=== PATIENT | female | born 1960 | race Caucasian/White ===

== ENCOUNTER 2019-08-18 12:55 | Inpatient (IN) ==
[2019-08-18] MEDS ORDERED: methylPREDNISolone 125 MG/2 ML VIAL IVP ONE (13:03)
[2019-08-18] MEDS ORDERED: Ipratropium/Albuterol Neb 3 ML IH ONE (13:03)
[2019-08-18 13:32] LABS: Basophils % 0.2 %; Hematocrit 44.4 % (35.3-44.9); Hemoglobin 14.7 g/dL (11.5-15.4); Immature Granulocytes % 0.4 % (0-4); Lymphocytes # 0.2 K/mcL (0.6-4.6); Lymphocytes % 2.2 %; Mean Corpuscular HGB Conc 33.1 g/dL (31.6-35.5); Mean Corpuscular Hemoglobin 30.7 pg (28.0-33.3); Mean Corpuscular Volume 92.7 fL (83.0-100.0); Mean Platelet Volume 9.1 fL (9.4-12.4); Monocytes # 0.4 K/mcL (0.0-1.3); Monocytes % 4.7 %; Neutrophils # 8.3 K/mcL (1.6-8.9); Platelet Count 295 K/mcL (140-400); Red Blood Count 4.79 M/mcL (3.82-4.97); Red Cell Distribution Width 13.8 % (11.5-14.5); Segmented Neutrophils % 92.5 %
[2019-08-18] MEDS ORDERED: Azithromycin 500 MG in 0.9 % Sodium Chloride 250 ML IVPB ONE (13:37)
[2019-08-18] MEDS ORDERED: cefTRIAXone 1,000 MG in Water for inj. (sterile) 10 ML IVP ONE (13:37)
[2019-08-18] MEDS ORDERED: 0.9 % Sodium Chloride 1,000 ML IVC ONE (13:37)
[2019-08-18 13:51] LABS: BUN/Creatinine Ratio 26 (6-26); Blood Urea Nitrogen 17 mg/dL (8-23); Calcium 9.8 mg/dL (8.6-10.3); Carbon Dioxide 25 mEq/L (23-29); Chloride 101 mEq/L (98-107); Glucose 131 mg/dL (70-105); Osmolality,Calculated 283 (280-300); Potassium 4.1 mEq/L (3.5-5.1); Sodium 135 mEq/L (136-145); eGFR For African Americans > 60 (> 60); eGFR For Non-African Americans > 60 (> 60)
[2019-08-18] MEDS ORDERED: Albuterol 2.5 MG/3 ML NEBULIZER IH ONE (13:54)
[2019-08-18 14:27] LABS: ABG Base Excess 3 mEq/L (-2 to 3); ABG HCO3 27 mEq/L (21-27); ABG Oxygen Saturation 94 % (95-98); ABG PCO2 41 mmHg (35-45); ABG PH 7.43 pH Units (7.32-7.45); ABG PO2 71 mmHg (85-104); ABG TCO2 28 mEq/L (20-26)
[2019-08-18] MEDS ORDERED: Acetaminophen 325 MG TABLET PO PRN (15:11)
[2019-08-18] MEDS ORDERED: Naloxone 0.4 MG/ML INJ IVP PRN (15:11)
[2019-08-18] MEDS ORDERED: Albuterol 2.5 MG/3 ML NEBULIZER IH PRN (15:11)
[2019-08-18] MEDS ORDERED: MOM Conc 10 ML UD.LIQ PO PRN (15:11)
[2019-08-18] MEDS ORDERED: Mag Hydrox/Al Hydrox/Simeth 30 ML UDC PO PRN (15:11)
[2019-08-18] MEDS ORDERED: Ondansetron ODT 4 MG TAB.RAPDIS SL PRN (15:11)
[2019-08-18] MEDS: Ipratropium/Albuterol Neb 3 ML IH SCH ×2 (15:53→21:41)
[2019-08-18] MEDS: MethylPREDNISolone 40 MG/ML VIAL IVP SCH ×2 (17:30→23:45)
[2019-08-18 17:34] LABS: Adenovirus Not Detected (Not Detect); Coronavirus 229E Not Detected (Not Detect); Coronavirus HKU1 Not Detected (Not Detect); Coronavirus NL63 Not Detected (Not Detect); Coronavirus OC43 Not Detected (Not Detect); Human Metapneumovirus Not Detected (Not Detect); Human Rhinovirus/Enterovirus Not Detected (Not Detect)
[2019-08-18 17:35] LABS: Bordetella Pertussis Not Detected (Not Detect); Chlamydophila pneumoniae Not Detected (Not Detect); Influenza A Subtype 2009 H1 DETECTED (Not Detect); Influenza B Not Detected (Not Detect); Mycoplasma pneumoniae Not Detected (Not Detect); Parainfluenza Virus 1 Not Detected (Not Detect); Parainfluenza Virus 2 Not Detected (Not Detect); Parainfluenza Virus 3 Not Detected (Not Detect); Parainfluenza Virus 4 Not Detected (Not Detect); Respiratory Syncytial Virus Not Detected (Not Detect)
[2019-08-18] MEDS ORDERED: *HR* LORazepam 2 MG/ML VIAL IVP ONE (19:29)
[2019-08-19] MEDS ORDERED: *HR* LORazepam 2 MG/ML VIAL IVP ONE (00:35)
[2019-08-19] MEDS ORDERED: MethylPREDNISolone 40 MG/ML VIAL IVP ONE (00:40)
[2019-08-19] MEDS ORDERED: Levalbuterol Neb 1.25 MG/3 ML ONE (01:30)
[2019-08-19] MEDS: Levalbuterol Neb 1.25 MG/3 ML IH SCH ×6 (01:32→23:10)
[2019-08-19 01:36] LABS: Hematocrit 47.8 % (35.3-44.9); Hemoglobin 15.6 g/dL (11.5-15.4); Mean Corpuscular HGB Conc 32.6 g/dL (31.6-35.5); Mean Platelet Volume 9.5 fL (9.4-12.4); Platelet Count 351 K/mcL (140-400); Red Blood Count 5.03 M/mcL (3.82-4.97); Red Cell Distribution Width 14.1 % (11.5-14.5); White Blood Count 13.9 K/mcL (4.3-11.1)
[2019-08-19] MEDS ORDERED: *HR* Metoprolol 5 MG/5 ML VIAL IVP ONE (01:39)
[2019-08-19 01:51] LABS: BUN/Creatinine Ratio 28 (6-26); Blood Urea Nitrogen 22 mg/dL (8-23); Calcium 9.2 mg/dL (8.6-10.3); Carbon Dioxide 26 mEq/L (23-29); Chloride 102 mEq/L (98-107); Glucose 132 mg/dL (70-105); Magnesium 2.3 mg/dL (1.6-2.6); Osmolality,Calculated 295 (280-300); Phosphorous 4.1 mg/dL (2.7-4.5); Potassium 4.5 mEq/L (3.5-5.1); Sodium 140 mEq/L (136-145); eGFR For African Americans > 60 (> 60); eGFR For Non-African Americans > 60 (> 60)
[2019-08-19] MEDS ORDERED: Levalbuterol Neb 1.25 MG/3 ML IH ONE (03:42)
[2019-08-19] MEDS ORDERED: Pantoprazole 40 MG VIAL IVP SCH (06:00)
[2019-08-19] MEDS: MethylPREDNISolone 40 MG/ML VIAL IVP SCH (06:04)
[2019-08-19 07:50] LABS: Estimated Average Glucose 123 mg/dl
[2019-08-19] MEDS ORDERED: Ipratropium/Albuterol Neb 3 ML IH ONE (08:26)
[2019-08-19] MEDS ORDERED: Ipratropium/Albuterol Neb 3 ML ONE ×2 (08:29→09:46)
[2019-08-19 08:43] LABS: ABG Base Excess 2 mEq/L (-2 to 3); ABG HCO3 32 mEq/L (21-27); ABG Oxygen Saturation 95 % (95-98); ABG PCO2 70 mmHg (35-45); ABG PH 7.27 pH Units (7.32-7.45); ABG PO2 87 mmHg (85-104); ABG TCO2 34 mEq/L (20-26); Blood Gas Pressure Support 14 cm H2O
[2019-08-19] MEDS ORDERED: Loratadine 10 MG TABLET PO SCH (09:00)
[2019-08-19] MEDS ORDERED: Levalbuterol Neb 1.25 MG/3 ML IH STA (09:01)
[2019-08-19] MEDS: Ipratropium/Albuterol Neb 3 ML IH SCH (09:37)
[2019-08-19] MEDS ORDERED: Naloxone 0.4 MG/ML INJ IVP PRN (09:40)
[2019-08-19] MEDS ORDERED: Acetaminophen 325 MG TABLET PO PRN (09:40)
[2019-08-19] MEDS ORDERED: MOM Conc 10 ML UD.LIQ PO PRN (09:40)
[2019-08-19] MEDS ORDERED: Ondansetron ODT 4 MG TAB.RAPDIS SL PRN (09:40)
[2019-08-19] MEDS ORDERED: Albuterol 2.5 MG/3 ML NEBULIZER IH PRN (09:40)
[2019-08-19] MEDS ORDERED: Mag Hydrox/Al Hydrox/Simeth 30 ML UDC PO PRN (09:40)
[2019-08-19] MEDS ORDERED: Dexmedetomidine HCl 400 MCG/100 ML MLS IVC ONE (10:24)
[2019-08-19] MEDS: Dexmedetomidine HCl 400 MCG/100 ML MLS IVC SCH ×2 (10:49→19:34)
[2019-08-19] MEDS ORDERED: MethylPREDNISolone 40 MG/ML VIAL IVP SCH (12:00)
[2019-08-19] MEDS: Azithromycin 500 MG in 0.9 % Sodium Chloride 250 ML IVPB SCH (12:19)
[2019-08-19 13:41] LABS: ABG Base Excess -1 mEq/L (-2 to 3); ABG HCO3 28 mEq/L (21-27); ABG Oxygen Saturation 99 % (95-98); ABG PCO2 61 mmHg (35-45); ABG PH 7.27 pH Units (7.32-7.45); ABG PO2 140 mmHg (85-104); ABG TCO2 30 mEq/L (20-26); Blood Gas Pressure Support 16 cm H2O
[2019-08-19] MEDS ORDERED: cefTRIAXone 2,000 MG in Water for inj. (sterile) 20 ML IVP SCH (14:00)
[2019-08-19] MEDS ORDERED: Azithromycin 500 MG in 0.9 % Sodium Chloride 250 ML IVPB SCH (14:00)
[2019-08-19] MEDS: cefTRIAXone 2,000 MG in Water for inj. (sterile) 20 ML IVP SCH (14:36)
[2019-08-19] MEDS ORDERED: Aminoglycoside Consult 1 EACH MC ONE (15:03)
[2019-08-19] MEDS: Pantoprazole 40 MG VIAL IVP SCH (17:54)
[2019-08-20] MEDS: Levalbuterol Neb 1.25 MG/3 ML IH SCH ×5 (03:32→20:18)
[2019-08-20 04:02] LABS: Basophils % 0.1 %; Hematocrit 41.7 % (35.3-44.9); Hemoglobin 12.9 g/dL (11.5-15.4); Immature Granulocytes % 0.4 % (0-4); Lymphocytes # 0.9 K/mcL (0.6-4.6); Lymphocytes % 6.5 %; Mean Corpuscular HGB Conc 30.9 g/dL (31.6-35.5); Mean Corpuscular Hemoglobin 30.9 pg (28.0-33.3); Mean Corpuscular Volume 99.8 fL (83.0-100.0); Mean Platelet Volume 9.6 fL (9.4-12.4); Monocytes # 1.3 K/mcL (0.0-1.3); Monocytes % 9.8 %; Neutrophils # 11.4 K/mcL (1.6-8.9); Platelet Count 258 K/mcL (140-400); Red Blood Count 4.18 M/mcL (3.82-4.97); Red Cell Distribution Width 14.2 % (11.5-14.5); Segmented Neutrophils % 83.2 %; White Blood Count 13.7 K/mcL (4.3-11.1)
[2019-08-20 04:21] LABS: Calcium 8.5 mg/dL (8.6-10.3); Potassium 4.4 mEq/L (3.5-5.1)
[2019-08-20 04:47] LABS: ABG Base Excess 1 mEq/L (-2 to 3); ABG HCO3 28 mEq/L (21-27); ABG Oxygen Saturation 92 % (95-98); ABG PCO2 53 mmHg (35-45); ABG PH 7.32 pH Units (7.32-7.45); ABG PO2 70 mmHg (85-104); ABG TCO2 29 mEq/L (20-26)
[2019-08-20] MEDS: Pantoprazole 40 MG VIAL IVP SCH (05:55)
[2019-08-20] MEDS ORDERED: *HR* Enoxaparin 40 MG/0.4 ML SYRINGE SQ SCH (07:00)
[2019-08-20] MEDS ORDERED: 0.9 % Sodium Chloride 500 ML IVC ONE (07:04)
[2019-08-20] MEDS ORDERED: *HR* LORazepam 2 MG/ML VIAL IVP PRN ×2 (07:09→16:30)
[2019-08-20] MEDS ORDERED: *HR* OxyCODONE Immed Rel 5 MG TABLET PO PRN (07:22)
[2019-08-20] MEDS ORDERED: Loratadine 10 MG TABLET PO SCH (09:00)
[2019-08-20] MEDS: Azithromycin 500 MG in 0.9 % Sodium Chloride 250 ML IVPB SCH (11:21)
[2019-08-20] MEDS ORDERED: MethylPREDNISolone 40 MG/ML VIAL IVP SCH (12:00)
[2019-08-20] MEDS ORDERED: 0.9 % Sodium Chloride 1,000 ML IVC SCH (13:15)
[2019-08-20] MEDS: cefTRIAXone 2,000 MG in Water for inj. (sterile) 20 ML IVP SCH (14:33)
[2019-08-20] MEDS ORDERED: Ondansetron ODT 4 MG TAB.RAPDIS SL PRN (16:30)
[2019-08-20] MEDS ORDERED: Acetaminophen 325 MG TABLET PO PRN (16:30)
[2019-08-20] MEDS ORDERED: Mag Hydrox/Al Hydrox/Simeth 30 ML UDC PO PRN (16:30)
[2019-08-20] MEDS ORDERED: MOM Conc 10 ML UD.LIQ PO PRN (16:30)
[2019-08-20] MEDS ORDERED: Naloxone 0.4 MG/ML INJ IVP PRN (16:30)
[2019-08-20] MEDS ORDERED: Albuterol 2.5 MG/3 ML NEBULIZER IH PRN (16:30)
[2019-08-20] MEDS: 0.9 % Sodium Chloride 1,000 ML IVC SCH (17:52)
[2019-08-20] MEDS: MethylPREDNISolone 40 MG/ML VIAL IVP SCH ×2 (18:11→23:00)
[2019-08-21] MEDS: Levalbuterol Neb 1.25 MG/3 ML IH SCH ×7 (00:51→23:17)
[2019-08-21 02:28] LABS: Magnesium 2.6 mg/dL (1.6-2.6); Potassium 5.1 mEq/L (3.5-5.1)
[2019-08-21 02:48] LABS: Basophils % 0.1 %; Hematocrit 39.6 % (35.3-44.9); Hemoglobin 12.4 g/dL (11.5-15.4); Immature Granulocytes % 0.3 % (0-4); Lymphocytes # 0.4 K/mcL (0.6-4.6); Mean Corpuscular HGB Conc 31.3 g/dL (31.6-35.5); Mean Corpuscular Hemoglobin 30.5 pg (28.0-33.3); Mean Corpuscular Volume 97.5 fL (83.0-100.0); Mean Platelet Volume 9.8 fL (9.4-12.4); Monocytes # 0.5 K/mcL (0.0-1.3); Neutrophils # 10.9 K/mcL (1.6-8.9); Platelet Count 261 K/mcL (140-400); Red Blood Count 4.06 M/mcL (3.82-4.97); Red Cell Distribution Width 14.6 % (11.5-14.5); Segmented Neutrophils % 92.6 %; White Blood Count 11.8 K/mcL (4.3-11.1)
[2019-08-21] MEDS: 0.9 % Sodium Chloride 1,000 ML IVC SCH (05:09)
[2019-08-21] MEDS: MethylPREDNISolone 40 MG/ML VIAL IVP SCH ×2 (05:09→13:30)
[2019-08-21] MEDS ORDERED: *HR* Enoxaparin 40 MG/0.4 ML SYRINGE SQ SCH (07:00)
[2019-08-21] MEDS ORDERED: Pantoprazole 40 MG VIAL IVP SCH (09:00)
[2019-08-21] MEDS: Loratadine 10 MG TABLET PO SCH (10:05)
[2019-08-21] MEDS: Azithromycin 500 MG in 0.9 % Sodium Chloride 250 ML IVPB SCH (10:05)
[2019-08-21] MEDS: Pantoprazole 40 MG VIAL IVP SCH (10:06)
[2019-08-21] MEDS: *HR* OxyCODONE Immed Rel 5 MG TABLET PO PRN ×2 (10:13→16:18)
[2019-08-21] MEDS: cefTRIAXone 2,000 MG in Water for inj. (sterile) 20 ML IVP SCH (13:30)
[2019-08-21] MEDS: Tiotropium 18 MCG inhalation IH SCH (19:26)
[2019-08-21] MEDS ORDERED: MethylPREDNISolone 40 MG/ML VIAL IVP ONE (19:30)
[2019-08-22] MEDS: *HR* OxyCODONE Immed Rel 5 MG TABLET PO PRN ×3 (03:32→22:14)
[2019-08-22] MEDS: Levalbuterol Neb 1.25 MG/3 ML IH SCH ×6 (03:48→23:27)
[2019-08-22 05:08] LABS: Basophils % 0.1 %; Hematocrit 39.7 % (35.3-44.9); Hemoglobin 12.2 g/dL (11.5-15.4); Immature Granulocytes % 0.5 % (0-4); Lymphocytes # 0.4 K/mcL (0.6-4.6); Mean Corpuscular HGB Conc 30.7 g/dL (31.6-35.5); Mean Corpuscular Volume 97.5 fL (83.0-100.0); Monocytes # 0.5 K/mcL (0.0-1.3); Monocytes % 4.9 %; Neutrophils # 8.7 K/mcL (1.6-8.9); Platelet Count 268 K/mcL (140-400); Red Blood Count 4.07 M/mcL (3.82-4.97); Red Cell Distribution Width 14.2 % (11.5-14.5); Segmented Neutrophils % 90.5 %; White Blood Count 9.6 K/mcL (4.3-11.1)
[2019-08-22 05:44] LABS: Calcium 8.4 mg/dL (8.6-10.3); Potassium 4.7 mEq/L (3.5-5.1)
[2019-08-22] MEDS ORDERED: *HR* Enoxaparin 30 MG/0.3 ML SYRINGE SQ SCH (06:00)
[2019-08-22] MEDS: Tiotropium 18 MCG inhalation IH SCH (07:18)
[2019-08-22] MEDS: Loratadine 10 MG TABLET PO SCH (09:00)
[2019-08-22] MEDS: predniSONE 20 MG TABLET PO SCH (09:00)
[2019-08-22] MEDS: Pantoprazole 40 MG VIAL IVP SCH (09:00)
[2019-08-22] MEDS: Azithromycin 500 MG in 0.9 % Sodium Chloride 250 ML IVPB SCH (10:51)
[2019-08-22] MEDS: cefTRIAXone 2,000 MG in Water for inj. (sterile) 20 ML IVP SCH (13:53)
[2019-08-23] MEDS: Levalbuterol Neb 1.25 MG/3 ML IH SCH ×3 (03:28→11:40)
[2019-08-23 04:21] LABS: BUN/Creatinine Ratio 48 (6-26); Blood Urea Nitrogen 48 mg/dL (8-23); Calcium 8.7 mg/dL (8.6-10.3); Carbon Dioxide 31 mEq/L (23-29); Chloride 104 mEq/L (98-107); Glucose 90 mg/dL (70-105); Osmolality,Calculated 298 (280-300); Potassium 5.1 mEq/L (3.5-5.1); Sodium 138 mEq/L (136-145); eGFR For African Americans > 60 (> 60); eGFR For Non-African Americans 57 (> 60)
[2019-08-23] MEDS ORDERED: *HR* Enoxaparin 40 MG/0.4 ML SYRINGE SQ SCH (06:00)
[2019-08-23] MEDS: Tiotropium 18 MCG inhalation IH SCH (07:33)
[2019-08-23] MEDS: *HR* OxyCODONE Immed Rel 5 MG TABLET PO PRN (07:50)
[2019-08-23 10:45] VITALS: BP 115/74
[2019-08-23] MEDS: predniSONE 20 MG TABLET PO SCH (11:03)
[2019-08-23] MEDS: Loratadine 10 MG TABLET PO SCH (11:04)
== END 2019-08-23 14:06 | disposition home health service (06) | DRG 140 ==
LOC: EMEROOARM 12:55 → 2ANU 12:55 → ICNU 08-19 09:45 → SUATTDRO 08-19 11:07 → 2ANU 08-20 21:32
PROVIDERS: ADMIT Pharmacist; ATTEND Internal Medicine

== ENCOUNTER 2021-01-16 11:21 | Inpatient (IN) ==
[2021-01-16] MEDS ORDERED: Ipratropium/Albuterol Neb 3 ML IH ONE (12:29)
[2021-01-16] MEDS ORDERED: *HR* OxyCODONE/APAP 10/325 TABLET PO ONE (12:30)
[2021-01-16 13:19] LABS: Basophils # 0.1 K/mcL (0.0-0.2); Basophils % 0.5 %; Eosinophils # 0.1 K/mcL (0.0-0.6); Eosinophils % 1.1 %; Hematocrit 38.7 % (35.3-44.9); Hemoglobin 12.5 g/dL (11.5-15.4); Immature Granulocytes % 0.4 % (0-4); Lymphocytes # 1.2 K/mcL (0.6-4.6); Mean Corpuscular HGB Conc 32.3 g/dL (31.6-35.5); Mean Corpuscular Hemoglobin 30.9 pg (28.0-33.3); Mean Corpuscular Volume 95.8 fL (83.0-100.0); Mean Platelet Volume 9.6 fL (9.4-12.4); Monocytes # 0.9 K/mcL (0.0-1.3); Monocytes % 7.6 %; Neutrophils # 9.8 K/mcL (1.6-8.9); Platelet Count 353 K/mcL (140-400); Red Blood Count 4.04 M/mcL (3.82-4.97); Red Cell Distribution Width 13.4 % (11.5-14.5); Segmented Neutrophils % 80.4 %; White Blood Count 12.2 K/mcL (4.3-11.1)
[2021-01-16 13:27] LABS: BUN/Creatinine Ratio 39 (6-26); Blood Urea Nitrogen 27 mg/dL (8-23); Calcium 9.8 mg/dL (8.6-10.3); Carbon Dioxide 31 mEq/L (23-29); Chloride 96 mEq/L (98-107); Glucose 113 mg/dL (70-105); Osmolality,Calculated 292 (280-300); Potassium 3.7 mEq/L (3.5-5.1); Sodium 138 mEq/L (136-145); eGFR For African Americans > 60 (> 60); eGFR For Non-African Americans > 60 (> 60)
[2021-01-16 13:28] LABS: Troponin I < 0.03 ng/mL (< 0.04)
[2021-01-16] MEDS ORDERED: Naloxone 0.4 MG/ML INJ IVP PRN (14:41)
[2021-01-16] MEDS ORDERED: Melatonin 3 MG TABLET PO PRN (14:41)
[2021-01-16] MEDS ORDERED: Ondansetron 4 MG/2 ML VIAL IVP PRN (14:41)
[2021-01-16] MEDS ORDERED: Acetaminophen 325 MG TABLET PO PRN (14:41)
[2021-01-16] MEDS ORDERED: Isovue-370 500 ML BOTTLE IVP ONE (15:59)
[2021-01-16] MEDS: predniSONE 5 MG TABLET PO SCH (20:38)
[2021-01-16] MEDS ORDERED: Perflutren Lipid Microsphere 1.3 ML in 0.9 % Sodium Chloride 8.7 ML IVP PRN (21:24)
[2021-01-16] MEDS: *HR* OxyCODONE Immed Rel 5 MG TABLET PO PRN (22:29)
[2021-01-16] MEDS: Ipratropium/Albuterol Neb 3 ML IH PRN (22:48)
[2021-01-17] MEDS ORDERED: Acetaminophen IV 1,000 MG/100 ML BAG IVPB ONE (04:33)
[2021-01-17] MEDS: *HR* Enoxaparin 40 MG/0.4 ML SYRINGE SQ SCH (05:12)
[2021-01-17] MEDS: Ipratropium/Albuterol Neb 3 ML IH PRN ×3 (05:30→23:51)
[2021-01-17 07:12] LABS: Basophils # 0.1 K/mcL (0.0-0.2); Basophils % 0.5 %; Eosinophils # 0.1 K/mcL (0.0-0.6); Hematocrit 38.2 % (35.3-44.9); Hemoglobin 11.9 g/dL (11.5-15.4); Immature Granulocytes % 0.4 % (0-4); Lymphocytes # 1.5 K/mcL (0.6-4.6); Lymphocytes % 14.6 %; Mean Corpuscular HGB Conc 31.2 g/dL (31.6-35.5); Mean Corpuscular Hemoglobin 30.1 pg (28.0-33.3); Mean Corpuscular Volume 96.5 fL (83.0-100.0); Mean Platelet Volume 9.6 fL (9.4-12.4); Monocytes # 0.8 K/mcL (0.0-1.3); Monocytes % 7.6 %; Neutrophils # 7.7 K/mcL (1.6-8.9); Platelet Count 343 K/mcL (140-400); Red Blood Count 3.96 M/mcL (3.82-4.97); Red Cell Distribution Width 13.4 % (11.5-14.5); Segmented Neutrophils % 75.9 %; White Blood Count 10.2 K/mcL (4.3-11.1)
[2021-01-17 07:41] LABS: BUN/Creatinine Ratio 51 (6-26); Blood Urea Nitrogen 31 mg/dL (8-23); Calcium 9.7 mg/dL (8.6-10.3); Carbon Dioxide 26 mEq/L (23-29); Chloride 97 mEq/L (98-107); Glucose 97 mg/dL (70-105); Magnesium 2.1 mg/dL (1.6-2.6); Osmolality,Calculated 284 (280-300); Potassium 3.9 mEq/L (3.5-5.1); Sodium 134 mEq/L (136-145); eGFR For African Americans > 60 (> 60); eGFR For Non-African Americans > 60 (> 60)
[2021-01-17 07:47] LABS: Thyroid Stimulating Hormone 1.194 mcIU/mL (0.340-5.600)
[2021-01-17] MEDS: *HR* OxyCODONE Immed Rel 5 MG TABLET PO PRN ×2 (08:36→20:35)
[2021-01-17] MEDS: predniSONE 5 MG TABLET PO SCH ×2 (08:36→20:27)
[2021-01-17] MEDS: Furosemide 40 MG/4 ML VIAL IVP SCH (08:37)
[2021-01-17] MEDS: Ciprofloxacin HCL Soln 5 ML BOTTLE LEFT EYE SCH ×3 (11:24→21:47)
[2021-01-17] MEDS: Ciprofloxacin HCL Soln 5 ML BOTTLE RIGHT EYE SCH ×3 (11:25→21:47)
[2021-01-17] MEDS ORDERED: Lacri-Lube 3.5 GM TUBE BOTH EYES PRN (14:50)
[2021-01-17] MEDS ORDERED: Erythromycin OPTH Oint RIGHT EYE SCH (16:00)
[2021-01-17] MEDS ORDERED: Famotidine 20 MG TABLET PO PRN (16:37)
[2021-01-17] MEDS: Erythromycin OPTH Oint RIGHT EYE SCH ×3 (17:10→22:36)
[2021-01-18] MEDS: Erythromycin OPTH Oint RIGHT EYE SCH ×11 (00:34→23:37)
[2021-01-18] MEDS: Ciprofloxacin HCL Soln 5 ML BOTTLE LEFT EYE SCH ×7 (00:38→23:39)
[2021-01-18] MEDS: Ciprofloxacin HCL Soln 5 ML BOTTLE RIGHT EYE SCH ×5 (00:39→16:20)
[2021-01-18 02:35] LABS: Hemoglobin 11.9 g/dL (11.5-15.4); Mean Corpuscular HGB Conc 31.3 g/dL (31.6-35.5); Mean Corpuscular Hemoglobin 30.1 pg (28.0-33.3); Mean Corpuscular Volume 96.2 fL (83.0-100.0); Mean Platelet Volume 9.4 fL (9.4-12.4); Platelet Count 323 K/mcL (140-400); Red Blood Count 3.95 M/mcL (3.82-4.97); Red Cell Distribution Width 13.4 % (11.5-14.5); White Blood Count 11.2 K/mcL (4.3-11.1)
[2021-01-18 02:53] LABS: Alanine Aminotransferase 14 Units/L (7-52); Albumin 4.2 g/dL (3.5-5.7); Albumin/Globulin Ratio 1.8 (1.1-2.2); Alkaline Phosphatase 107 Units/L (34-104); Aspartate Amino Transferase 12 Units/L (13-39); BUN/Creatinine Ratio 46 (6-26); Bilirubin,Total 0.6 mg/dL (0.3-1.0); Blood Urea Nitrogen 31 mg/dL (8-23); Calcium 9.7 mg/dL (8.6-10.3); Carbon Dioxide 29 mEq/L (23-29); Chloride 97 mEq/L (98-107); Globulin 2.4 g/dL (2.4-3.5); Glucose 118 mg/dL (70-105); Osmolality,Calculated 286 (280-300); Sodium 134 mEq/L (136-145); Total Protein 6.6 g/dL (6.4-8.9); eGFR For African Americans > 60 (> 60); eGFR For Non-African Americans > 60 (> 60)
[2021-01-18] MEDS: *HR* Enoxaparin 40 MG/0.4 ML SYRINGE SQ SCH (05:47)
[2021-01-18] MEDS: Ipratropium/Albuterol Neb 3 ML IH PRN ×3 (05:55→20:16)
[2021-01-18] MEDS: predniSONE 5 MG TABLET PO SCH ×2 (08:00→20:58)
[2021-01-18] MEDS: lisinopriL 10 MG TABLET PO SCH (08:00)
[2021-01-18] MEDS: Furosemide 40 MG/4 ML VIAL IVP SCH ×2 (08:00→16:24)
[2021-01-18] MEDS ORDERED: Bumetanide 1 MG TABLET PO SCH (09:00)
[2021-01-18] MEDS: *HR* OxyCODONE Immed Rel 5 MG TABLET PO PRN ×2 (09:17→20:55)
[2021-01-18] MEDS ORDERED: *HR* Heparin 5,000 UNIT/ML VIAL IVP PRN ×2 (15:32)
[2021-01-18] MEDS: Heparin 25,000UNIT/250ML 1/2NS 25,000 UNIT/250 ML IV.SOLN IVC SCH (16:32)
[2021-01-18 22:13] LABS: Hematocrit 38.1 % (35.3-44.9); Mean Corpuscular HGB Conc 31.5 g/dL (31.6-35.5); Mean Corpuscular Hemoglobin 30.5 pg (28.0-33.3); Mean Corpuscular Volume 96.7 fL (83.0-100.0); Mean Platelet Volume 9.5 fL (9.4-12.4); Platelet Count 327 K/mcL (140-400); Red Blood Count 3.94 M/mcL (3.82-4.97); Red Cell Distribution Width 13.5 % (11.5-14.5); White Blood Count 12.4 K/mcL (4.3-11.1)
[2021-01-19] MEDS: Ciprofloxacin HCL Soln 5 ML BOTTLE LEFT EYE SCH ×3 (00:03→08:41)
[2021-01-19] MEDS: Erythromycin OPTH Oint RIGHT EYE SCH ×10 (00:03→21:17)
[2021-01-19 01:20] LABS: Hematocrit 37.1 % (35.3-44.9); Mean Corpuscular HGB Conc 32.3 g/dL (31.6-35.5); Mean Corpuscular Hemoglobin 30.9 pg (28.0-33.3); Mean Corpuscular Volume 95.6 fL (83.0-100.0); Platelet Count 315 K/mcL (140-400); Red Blood Count 3.88 M/mcL (3.82-4.97); Red Cell Distribution Width 13.4 % (11.5-14.5); White Blood Count 12.1 K/mcL (4.3-11.1)
[2021-01-19 01:40] LABS: Alanine Aminotransferase 14 Units/L (7-52); Albumin 4.2 g/dL (3.5-5.7); Albumin/Globulin Ratio 1.8 (1.1-2.2); Alkaline Phosphatase 101 Units/L (34-104); Aspartate Amino Transferase 14 Units/L (13-39); BUN/Creatinine Ratio 40 (6-26); Bilirubin,Total 0.6 mg/dL (0.3-1.0); Blood Urea Nitrogen 37 mg/dL (8-23); Calcium 9.4 mg/dL (8.6-10.3); Carbon Dioxide 25 mEq/L (23-29); Chloride 95 mEq/L (98-107); Globulin 2.4 g/dL (2.4-3.5); Glucose 137 mg/dL (70-105); Osmolality,Calculated 287 (280-300); Potassium 3.5 mEq/L (3.5-5.1); Sodium 133 mEq/L (136-145); Total Protein 6.6 g/dL (6.4-8.9); eGFR For African Americans > 60 (> 60); eGFR For Non-African Americans > 60 (> 60)
[2021-01-19] MEDS: Ipratropium/Albuterol Neb 3 ML IH PRN ×2 (05:19→10:34)
[2021-01-19] MEDS: Ciprofloxacin HCL Soln 5 ML BOTTLE RIGHT EYE SCH ×3 (07:31→08:42)
[2021-01-19] MEDS: predniSONE 5 MG TABLET PO SCH ×2 (08:41→21:16)
[2021-01-19] MEDS: Furosemide 40 MG/4 ML VIAL IVP SCH ×2 (08:41→16:32)
[2021-01-19] MEDS: lisinopriL 10 MG TABLET PO SCH (08:41)
[2021-01-19] MEDS ORDERED: Ipratropium/Albuterol Neb 3 ML IH SCH (12:00)
[2021-01-19] MEDS: Heparin 25,000UNIT/250ML 1/2NS 25,000 UNIT/250 ML IV.SOLN IVC SCH (12:33)
[2021-01-19] MEDS: Ciprofloxacin HCL Soln 5 ML BOTTLE BOTH EYES SCH ×3 (12:53→21:18)
[2021-01-19] MEDS: Ipratropium/Albuterol Neb 3 ML IH SCH ×3 (15:31→23:24)
[2021-01-19] MEDS: *HR* Heparin 5,000 UNIT/ML VIAL SQ SCH (16:32)
[2021-01-19] MEDS: *HR* OxyCODONE Immed Rel 5 MG TABLET PO PRN (21:16)
[2021-01-20] MEDS: Ciprofloxacin HCL Soln 5 ML BOTTLE BOTH EYES SCH ×7 (00:14→23:49)
[2021-01-20] MEDS: Erythromycin OPTH Oint RIGHT EYE SCH ×14 (00:14→23:49)
[2021-01-20] MEDS: Ipratropium/Albuterol Neb 3 ML IH SCH ×6 (04:02→23:11)
[2021-01-20] MEDS: *HR* Heparin 5,000 UNIT/ML VIAL SQ SCH ×2 (06:11→17:58)
[2021-01-20 06:56] LABS: Hemoglobin 11.7 g/dL (11.5-15.4); Mean Corpuscular HGB Conc 32.5 g/dL (31.6-35.5); Mean Corpuscular Hemoglobin 30.6 pg (28.0-33.3); Mean Corpuscular Volume 94.2 fL (83.0-100.0); Mean Platelet Volume 9.5 fL (9.4-12.4); Platelet Count 324 K/mcL (140-400); Red Blood Count 3.82 M/mcL (3.82-4.97); Red Cell Distribution Width 13.4 % (11.5-14.5); White Blood Count 9.1 K/mcL (4.3-11.1)
[2021-01-20 07:14] LABS: Alanine Aminotransferase 15 Units/L (7-52); Albumin 4.1 g/dL (3.5-5.7); Albumin/Globulin Ratio 1.9 (1.1-2.2); Alkaline Phosphatase 99 Units/L (34-104); Aspartate Amino Transferase 12 Units/L (13-39); BUN/Creatinine Ratio 40 (6-26); Bilirubin,Total 0.6 mg/dL (0.3-1.0); Blood Urea Nitrogen 29 mg/dL (8-23); Calcium 9.8 mg/dL (8.6-10.3); Carbon Dioxide 32 mEq/L (23-29); Chloride 92 mEq/L (98-107); Globulin 2.2 g/dL (2.4-3.5); Glucose 114 mg/dL (70-105); Osmolality,Calculated 281 (280-300); Potassium 3.6 mEq/L (3.5-5.1); Sodium 132 mEq/L (136-145); Total Protein 6.3 g/dL (6.4-8.9); eGFR For African Americans > 60 (> 60); eGFR For Non-African Americans > 60 (> 60)
[2021-01-20] MEDS: predniSONE 5 MG TABLET PO SCH ×2 (08:16→21:23)
[2021-01-20] MEDS: Furosemide 40 MG/4 ML VIAL IVP SCH ×2 (08:16→17:58)
[2021-01-20] MEDS: *HR* OxyCODONE Immed Rel 5 MG TABLET PO PRN ×3 (08:16→19:28)
[2021-01-20] MEDS: lisinopriL 10 MG TABLET PO SCH (08:16)
[2021-01-20] MEDS ORDERED: MethylPREDNISolone 40 MG/ML VIAL IVP ONE (23:40)
[2021-01-21] MEDS: *HR* OxyCODONE Immed Rel 5 MG TABLET PO PRN ×5 (02:01→21:55)
[2021-01-21] MEDS: Erythromycin OPTH Oint RIGHT EYE SCH ×11 (02:02→21:56)
[2021-01-21 03:06] LABS: Hematocrit 37.6 % (35.3-44.9); Mean Corpuscular HGB Conc 31.9 g/dL (31.6-35.5); Mean Corpuscular Hemoglobin 30.5 pg (28.0-33.3); Mean Corpuscular Volume 95.4 fL (83.0-100.0); Mean Platelet Volume 9.3 fL (9.4-12.4); Platelet Count 307 K/mcL (140-400); Red Blood Count 3.94 M/mcL (3.82-4.97); Red Cell Distribution Width 13.5 % (11.5-14.5); White Blood Count 10.4 K/mcL (4.3-11.1)
[2021-01-21 03:25] LABS: Alanine Aminotransferase 16 Units/L (7-52); Albumin 4.2 g/dL (3.5-5.7); Albumin/Globulin Ratio 1.8 (1.1-2.2); Alkaline Phosphatase 98 Units/L (34-104); Aspartate Amino Transferase 14 Units/L (13-39); BUN/Creatinine Ratio 43 (6-26); Bilirubin,Total 0.7 mg/dL (0.3-1.0); Blood Urea Nitrogen 30 mg/dL (8-23); Calcium 9.7 mg/dL (8.6-10.3); Carbon Dioxide 29 mEq/L (23-29); Chloride 92 mEq/L (98-107); Globulin 2.4 g/dL (2.4-3.5); Glucose 137 mg/dL (70-105); Osmolality,Calculated 278 (280-300); Potassium 4.3 mEq/L (3.5-5.1); Sodium 130 mEq/L (136-145); Total Protein 6.6 g/dL (6.4-8.9); eGFR For African Americans > 60 (> 60); eGFR For Non-African Americans > 60 (> 60)
[2021-01-21] MEDS: Ciprofloxacin HCL Soln 5 ML BOTTLE BOTH EYES SCH ×5 (03:52→19:34)
[2021-01-21] MEDS: Ipratropium/Albuterol Neb 3 ML IH SCH ×6 (04:30→23:41)
[2021-01-21] MEDS: *HR* Heparin 5,000 UNIT/ML VIAL SQ SCH ×2 (06:02→17:28)
[2021-01-21] MEDS: predniSONE 5 MG TABLET PO SCH ×2 (08:44→19:35)
[2021-01-21] MEDS: lisinopriL 10 MG TABLET PO SCH (08:44)
[2021-01-21] MEDS: Furosemide 40 MG/4 ML VIAL IVP SCH ×2 (09:19→17:31)
[2021-01-22] MEDS: Ciprofloxacin HCL Soln 5 ML BOTTLE BOTH EYES SCH ×6 (00:03→19:36)
[2021-01-22] MEDS: Erythromycin OPTH Oint RIGHT EYE SCH ×12 (00:04→22:52)
[2021-01-22] MEDS: *HR* OxyCODONE Immed Rel 5 MG TABLET PO PRN ×2 (03:47→16:55)
[2021-01-22] MEDS: Ipratropium/Albuterol Neb 3 ML IH SCH ×6 (03:56→23:31)
[2021-01-22] MEDS: *HR* Heparin 5,000 UNIT/ML VIAL SQ SCH ×2 (05:24→16:55)
[2021-01-22 06:11] LABS: Hematocrit 35.9 % (35.3-44.9); Hemoglobin 11.3 g/dL (11.5-15.4); Mean Corpuscular HGB Conc 31.5 g/dL (31.6-35.5); Mean Corpuscular Hemoglobin 30.2 pg (28.0-33.3); Mean Platelet Volume 9.6 fL (9.4-12.4); Platelet Count 312 K/mcL (140-400); Red Blood Count 3.74 M/mcL (3.82-4.97); Red Cell Distribution Width 13.5 % (11.5-14.5); White Blood Count 11.8 K/mcL (4.3-11.1)
[2021-01-22 06:35] LABS: Alanine Aminotransferase 16 Units/L (7-52); Albumin 4.2 g/dL (3.5-5.7); Albumin/Globulin Ratio 1.9 (1.1-2.2); Alkaline Phosphatase 102 Units/L (34-104); Aspartate Amino Transferase 13 Units/L (13-39); BUN/Creatinine Ratio 49 (6-26); Bilirubin,Total 0.4 mg/dL (0.3-1.0); Blood Urea Nitrogen 35 mg/dL (8-23); Calcium 9.7 mg/dL (8.6-10.3); Carbon Dioxide 29 mEq/L (23-29); Chloride 92 mEq/L (98-107); Globulin 2.2 g/dL (2.4-3.5); Glucose 117 mg/dL (70-105); Osmolality,Calculated 279 (280-300); Potassium 4.2 mEq/L (3.5-5.1); Sodium 130 mEq/L (136-145); Total Protein 6.4 g/dL (6.4-8.9); eGFR For African Americans > 60 (> 60); eGFR For Non-African Americans > 60 (> 60)
[2021-01-22] MEDS: lisinopriL 10 MG TABLET PO SCH (08:18)
[2021-01-22] MEDS: predniSONE 5 MG TABLET PO SCH (08:19)
[2021-01-22] MEDS: Furosemide 40 MG/4 ML VIAL IVP SCH (09:43)
[2021-01-22] MEDS: MethylPREDNISolone 40 MG/ML VIAL IVP SCH ×2 (13:26→20:04)
[2021-01-23] MEDS: Erythromycin OPTH Oint RIGHT EYE SCH ×11 (00:33→21:00)
[2021-01-23] MEDS: Ciprofloxacin HCL Soln 5 ML BOTTLE BOTH EYES SCH ×6 (00:33→21:01)
[2021-01-23] MEDS: Ipratropium/Albuterol Neb 3 ML IH SCH ×6 (03:54→23:07)
[2021-01-23] MEDS: MethylPREDNISolone 40 MG/ML VIAL IVP SCH ×3 (04:44→20:55)
[2021-01-23] MEDS: *HR* OxyCODONE Immed Rel 5 MG TABLET PO PRN ×3 (04:44→20:55)
[2021-01-23] MEDS: *HR* Heparin 5,000 UNIT/ML VIAL SQ SCH ×2 (04:44→15:37)
[2021-01-24] MEDS: Erythromycin OPTH Oint RIGHT EYE SCH ×8 (02:08→23:51)
[2021-01-24] MEDS: Ciprofloxacin HCL Soln 5 ML BOTTLE BOTH EYES SCH ×6 (02:09→21:19)
[2021-01-24] MEDS: Ipratropium/Albuterol Neb 3 ML IH SCH ×5 (04:05→19:54)
[2021-01-24] MEDS: *HR* Heparin 5,000 UNIT/ML VIAL SQ SCH ×2 (05:27→21:18)
[2021-01-24] MEDS: *HR* OxyCODONE Immed Rel 5 MG TABLET PO PRN ×3 (05:27→21:17)
[2021-01-24] MEDS: MethylPREDNISolone 40 MG/ML VIAL IVP SCH ×3 (05:27→21:16)
[2021-01-25] MEDS: Ipratropium/Albuterol Neb 3 ML IH SCH ×4 (00:19→11:28)
[2021-01-25] MEDS: Ciprofloxacin HCL Soln 5 ML BOTTLE BOTH EYES SCH ×4 (00:58→11:17)
[2021-01-25] MEDS: MethylPREDNISolone 40 MG/ML VIAL IVP SCH (04:23)
[2021-01-25] MEDS: *HR* OxyCODONE Immed Rel 5 MG TABLET PO PRN ×2 (04:24→14:43)
[2021-01-25] MEDS: *HR* Heparin 5,000 UNIT/ML VIAL SQ SCH (04:24)
[2021-01-25] MEDS: Erythromycin OPTH Oint RIGHT EYE SCH ×4 (04:25→14:27)
[2021-01-25] MEDS ORDERED: Furosemide 20 MG TABLET PO SCH (09:00)
[2021-01-25 10:09] LABS: Hematocrit 33.4 % (35.3-44.9); Hemoglobin 10.6 g/dL (11.5-15.4); Mean Corpuscular HGB Conc 31.7 g/dL (31.6-35.5); Mean Corpuscular Hemoglobin 30.8 pg (28.0-33.3); Mean Corpuscular Volume 97.1 fL (83.0-100.0); Mean Platelet Volume 9.9 fL (9.4-12.4); Platelet Count 308 K/mcL (140-400); Red Blood Count 3.44 M/mcL (3.82-4.97); Red Cell Distribution Width 13.4 % (11.5-14.5); White Blood Count 12.5 K/mcL (4.3-11.1)
[2021-01-25 10:28] LABS: BUN/Creatinine Ratio 38 (6-26); Blood Urea Nitrogen 31 mg/dL (8-23); Calcium 9.6 mg/dL (8.6-10.3); Carbon Dioxide 26 mEq/L (23-29); Chloride 97 mEq/L (98-107); Glucose 162 mg/dL (70-105); Osmolality,Calculated 284 (280-300); Potassium 4.8 mEq/L (3.5-5.1); Sodium 132 mEq/L (136-145); eGFR For African Americans > 60 (> 60); eGFR For Non-African Americans > 60 (> 60)
[2021-01-25 11:08] VITALS: BP 108/71; PULSE 90; TEMP 98
[2021-01-25 12:15] VITALS: O2SAT 92
== END 2021-01-25 14:53 | DRG 347 ==
LOC: 3BNU 11:21 → EMEROOARM 11:21 → SUATTDRO 15:59 → 3BNU 17:03 → SUATTDRO 01-18 18:38
PROVIDERS: ADMIT Pharmacist; ATTEND Registered Nurse

== ENCOUNTER 2021-02-09 20:21 | Inpatient (IN) ==
[2021-02-09 20:57] LABS: Basophils % 0.2 %; Eosinophils # 0.1 K/mcL (0.0-0.6); Eosinophils % 0.4 %; Hematocrit 35.5 % (35.3-44.9); Hemoglobin 11.2 g/dL (11.5-15.4); Immature Granulocytes % 0.7 % (0-4); Lymphocytes # 1.1 K/mcL (0.6-4.6); Lymphocytes % 9.3 %; Mean Corpuscular HGB Conc 31.5 g/dL (31.6-35.5); Mean Corpuscular Hemoglobin 30.5 pg (28.0-33.3); Mean Corpuscular Volume 96.7 fL (83.0-100.0); Mean Platelet Volume 9.3 fL (9.4-12.4); Monocytes % 8.1 %; Neutrophils # 9.9 K/mcL (1.6-8.9); Platelet Count 275 K/mcL (140-400); Red Blood Count 3.67 M/mcL (3.82-4.97); Red Cell Distribution Width 14.6 % (11.5-14.5); Segmented Neutrophils % 81.3 %; White Blood Count 12.2 K/mcL (4.3-11.1)
[2021-02-09] MEDS ORDERED: Isovue-370 500 ML BOTTLE IVP ONE (21:17)
[2021-02-09 21:20] LABS: Alanine Aminotransferase 27 Units/L (7-52); Albumin 3.7 g/dL (3.5-5.7); Albumin/Globulin Ratio 1.5 (1.1-2.2); Alkaline Phosphatase 257 Units/L (34-104); Aspartate Amino Transferase 13 Units/L (13-39); BUN/Creatinine Ratio 50 (6-26); Bilirubin,Direct 0.1 mg/dL (0.0-0.2); Bilirubin,Indirect 0.3 mg/dL (0.0-1.0); Bilirubin,Total 0.4 mg/dL (0.3-1.0); Blood Urea Nitrogen 32 mg/dL (8-23); Calcium 9.3 mg/dL (8.6-10.3); Carbon Dioxide 29 mEq/L (23-29); Chloride 100 mEq/L (98-107); Globulin 2.5 g/dL (2.4-3.5); Glucose 99 mg/dL (70-105); Osmolality,Calculated 295 (280-300); Potassium 4.2 mEq/L (3.5-5.1); Sodium 139 mEq/L (136-145); Total Protein 6.2 g/dL (6.4-8.9); eGFR For African Americans > 60 (> 60); eGFR For Non-African Americans > 60 (> 60)
[2021-02-09 21:27] LABS: Troponin I < 0.03 ng/mL (< 0.04)
[2021-02-09 21:36] LABS: Prothrombin Time 11.3 Seconds (9.4-12.1)
[2021-02-09 21:38] LABS: Activated Partial Thrombo Time 22.1 Seconds (26.0-36.0)
[2021-02-09 22:55] LABS: Bilirubin,Urine Negative (Negative); Blood,Urine Negative (Negative); Clarity,Urine Clear (Clear); Color,Urine Light-Yellow (Yellow); Glucose,Urine (UA) Normal (Normal); Ketones,Urine Negative (Negative); Leukocyte Esterase,Urine Large (Negative); Mucus,Urine Few per lpf (None-Few); Nitrite,Urine Negative (Negative); PH,Urine 5.5 pH Units (5.0-8.0); Protein,Urine Negative (Neg-Trace); RBC,Urine 0-3 per hpf (0-3); Specific Gravity,Urine 1.026 (1.010-1.025); Squamous Epithelial Cell,Urine Few per hpf (None-Few); Urobilinogen,Urine Normal (Normal); WBC,Urine 30-50 per hpf (0-3)
[2021-02-10] MEDS ORDERED: Clindamycin 600 MG/50 ML 600 MG/50 ML IV.SOLN IVPB STA (00:45)
[2021-02-10] MEDS ORDERED: Ondansetron 4 MG/2 ML VIAL IVP PRN (01:06)
[2021-02-10] MEDS ORDERED: Melatonin 3 MG TABLET PO PRN (01:06)
[2021-02-10] MEDS ORDERED: Naloxone 0.4 MG/ML INJ IVP PRN (01:06)
[2021-02-10] MEDS ORDERED: *HR* HYDROmorphone (PF) 1 MG/ML SYRINGE IVP ONE (01:19)
[2021-02-10] MEDS: *HR* Heparin 5,000 UNIT/ML VIAL SQ SCH ×3 (04:51→21:55)
[2021-02-10] MEDS ORDERED: Vancomycin 1,750 MG/517.5 ML IV.SOLN IVPB ONE (05:00)
[2021-02-10] MEDS: Ipratropium/Albuterol Neb 3 ML IH SCH ×6 (05:05→23:36)
[2021-02-10 06:00] LABS: Hematocrit 32.6 % (35.3-44.9); Hemoglobin 10.4 g/dL (11.5-15.4); Mean Corpuscular HGB Conc 31.9 g/dL (31.6-35.5); Mean Corpuscular Hemoglobin 30.9 pg (28.0-33.3); Mean Corpuscular Volume 96.7 fL (83.0-100.0); Mean Platelet Volume 9.1 fL (9.4-12.4); Platelet Count 234 K/mcL (140-400); Red Blood Count 3.37 M/mcL (3.82-4.97); Red Cell Distribution Width 14.5 % (11.5-14.5)
[2021-02-10 06:27] LABS: BUN/Creatinine Ratio 53 (6-26); Blood Urea Nitrogen 30 mg/dL (8-23); Calcium 8.8 mg/dL (8.6-10.3); Carbon Dioxide 30 mEq/L (23-29); Chloride 102 mEq/L (98-107); Glucose 112 mg/dL (70-105); Osmolality,Calculated 295 (280-300); Potassium 4.4 mEq/L (3.5-5.1); Sodium 139 mEq/L (136-145); eGFR For African Americans > 60 (> 60); eGFR For Non-African Americans > 60 (> 60)
[2021-02-10 06:36] LABS: Troponin I < 0.03 ng/mL (< 0.04)
[2021-02-10] MEDS: Furosemide 40 MG/4 ML VIAL IVP SCH ×2 (08:42→17:19)
[2021-02-10] MEDS: Piperacillin/Tazobactam 3.375 GM in 0.9 % Sodium Chloride Mini Bag 100 ML IVPB SCH ×2 (08:43→15:31)
[2021-02-10 13:24] LABS: Adenovirus Not Detected (Not Detect); Coronavirus 229E Not Detected (Not Detect); Coronavirus HKU1 Not Detected (Not Detect); Coronavirus NL63 Not Detected (Not Detect); Coronavirus OC43 Not Detected (Not Detect)
[2021-02-10 13:25] LABS: Bordetella Pertussis Not Detected (Not Detect); Chlamydophila pneumoniae Not Detected (Not Detect); Human Metapneumovirus Not Detected (Not Detect); Human Rhinovirus/Enterovirus Not Detected (Not Detect); Influenza A Subtype 2009 H1 Not Detected (Not Detect); Influenza B Not Detected (Not Detect); Mycoplasma pneumoniae Not Detected (Not Detect); Parainfluenza Virus 1 Not Detected (Not Detect); Parainfluenza Virus 2 Not Detected (Not Detect); Parainfluenza Virus 3 Not Detected (Not Detect); Parainfluenza Virus 4 Not Detected (Not Detect); Respiratory Syncytial Virus Not Detected (Not Detect); SARS-CoV-2 Not Detected (Not Detect)
[2021-02-10] MEDS: Vancomycin 1,250 MG/262.5 ML IV.SOLN IVPB SCH (17:19)
[2021-02-10] MEDS: Famotidine 20 MG TABLET PO SCH (21:55)
[2021-02-10] MEDS: predniSONE 10 MG TABLET PO SCH (21:55)
[2021-02-11] MEDS: Piperacillin/Tazobactam 3.375 GM in 0.9 % Sodium Chloride Mini Bag 100 ML IVPB SCH ×4 (01:38→23:52)
[2021-02-11] MEDS: Ipratropium/Albuterol Neb 3 ML IH SCH ×6 (03:59→23:11)
[2021-02-11] MEDS: Vancomycin 1,250 MG/262.5 ML IV.SOLN IVPB SCH ×2 (06:11→18:33)
[2021-02-11] MEDS: *HR* Heparin 5,000 UNIT/ML VIAL SQ SCH ×3 (06:12→19:42)
[2021-02-11 06:56] LABS: Basophils % 0.1 %; Eosinophils # 0.1 K/mcL (0.0-0.6); Eosinophils % 0.7 %; Hematocrit 32.1 % (35.3-44.9); Hemoglobin 10.2 g/dL (11.5-15.4); Immature Granulocytes % 0.6 % (0-4); Lymphocytes # 0.7 K/mcL (0.6-4.6); Lymphocytes % 8.7 %; Mean Corpuscular HGB Conc 31.8 g/dL (31.6-35.5); Mean Corpuscular Hemoglobin 30.4 pg (28.0-33.3); Mean Corpuscular Volume 95.5 fL (83.0-100.0); Mean Platelet Volume 8.8 fL (9.4-12.4); Monocytes # 0.5 K/mcL (0.0-1.3); Monocytes % 6.7 %; Neutrophils # 6.7 K/mcL (1.6-8.9); Platelet Count 232 K/mcL (140-400); Red Blood Count 3.36 M/mcL (3.82-4.97); Red Cell Distribution Width 14.6 % (11.5-14.5); Segmented Neutrophils % 83.2 %
[2021-02-11 07:19] LABS: % Iron Saturation 11 % (15-50); BUN/Creatinine Ratio 38 (6-26); Blood Urea Nitrogen 28 mg/dL (8-23); Calcium 9.1 mg/dL (8.6-10.3); Carbon Dioxide 35 mEq/L (23-29); Chloride 98 mEq/L (98-107); Glucose 107 mg/dL (70-105); Iron 40 mcg/dL (50-170); Magnesium 2.3 mg/dL (1.6-2.6); Osmolality,Calculated 294 (280-300); Phosphorous 4.5 mg/dL (2.7-4.5); Potassium 4.3 mEq/L (3.5-5.1); Sodium 139 mEq/L (136-145); Transferrin 249 mg/dL (203-362); eGFR For African Americans > 60 (> 60); eGFR For Non-African Americans > 60 (> 60)
[2021-02-11 07:36] LABS: Ferritin 153 ng/mL (10-120)
[2021-02-11 07:41] LABS: Folate 6.2 ng/mL (3.0-16.0)
[2021-02-11] MEDS: Loratadine 10 MG TABLET PO SCH (09:11)
[2021-02-11] MEDS: Famotidine 20 MG TABLET PO SCH ×2 (09:11→19:42)
[2021-02-11] MEDS: predniSONE 10 MG TABLET PO SCH (09:12)
[2021-02-11] MEDS: Furosemide 40 MG/4 ML VIAL IVP SCH ×2 (09:12→17:25)
[2021-02-11] MEDS: Gabapentin 300 MG CAPSULE PO SCH ×2 (10:46→19:42)
[2021-02-11] MEDS: MethylPREDNISolone 40 MG/ML VIAL IVP SCH (17:25)
[2021-02-12] MEDS: Ipratropium/Albuterol Neb 3 ML IH SCH ×6 (03:36→23:34)
[2021-02-12] MEDS: *HR* Heparin 5,000 UNIT/ML VIAL SQ SCH ×3 (05:01→20:22)
[2021-02-12] MEDS: MethylPREDNISolone 40 MG/ML VIAL IVP SCH (05:01)
[2021-02-12] MEDS: Vancomycin 1,250 MG/262.5 ML IV.SOLN IVPB SCH (05:02)
[2021-02-12 05:43] LABS: Hematocrit 34.9 % (35.3-44.9); Hemoglobin 11.1 g/dL (11.5-15.4)
[2021-02-12 05:52] LABS: BUN/Creatinine Ratio 39 (6-26); Blood Urea Nitrogen 30 mg/dL (8-23); Calcium 9.6 mg/dL (8.6-10.3); Carbon Dioxide 33 mEq/L (23-29); Chloride 97 mEq/L (98-107); Glucose 122 mg/dL (70-105); Magnesium 2.5 mg/dL (1.6-2.6); Osmolality,Calculated 293 (280-300); Phosphorous 4.7 mg/dL (2.7-4.5); Potassium 3.9 mEq/L (3.5-5.1); Sodium 138 mEq/L (136-145); eGFR For African Americans > 60 (> 60); eGFR For Non-African Americans > 60 (> 60)
[2021-02-12] MEDS: Furosemide 40 MG/4 ML VIAL IVP SCH ×2 (08:33→17:59)
[2021-02-12] MEDS: Famotidine 20 MG TABLET PO SCH ×2 (08:33→19:35)
[2021-02-12] MEDS: Loratadine 10 MG TABLET PO SCH (08:33)
[2021-02-12] MEDS: Gabapentin 300 MG CAPSULE PO SCH ×2 (08:33→19:35)
[2021-02-12] MEDS: Piperacillin/Tazobactam 3.375 GM in 0.9 % Sodium Chloride Mini Bag 100 ML IVPB SCH (08:34)
[2021-02-12] MEDS: levoFLOXacin 500 MG TABLET PO SCH (13:50)
[2021-02-12] MEDS: Doxycycline 100 MG CAPSULE PO SCH (19:36)
[2021-02-13] MEDS: *HR* Heparin 5,000 UNIT/ML VIAL SQ SCH ×3 (04:32→20:48)
[2021-02-13] MEDS: Ipratropium/Albuterol Neb 3 ML IH SCH ×6 (04:35→23:17)
[2021-02-13] MEDS ORDERED: Acetaminophen IV 1,000 MG/100 ML BAG IVPB ONE (04:53)
[2021-02-13 04:54] LABS: Basophils % 0.2 %; Eosinophils # 0.1 K/mcL (0.0-0.6); Eosinophils % 0.6 %; Hematocrit 36.4 % (35.3-44.9); Hemoglobin 11.6 g/dL (11.5-15.4); Immature Granulocytes % 0.8 % (0-4); Lymphocytes # 1.4 K/mcL (0.6-4.6); Lymphocytes % 14.1 %; Mean Corpuscular HGB Conc 31.9 g/dL (31.6-35.5); Mean Corpuscular Hemoglobin 30.4 pg (28.0-33.3); Mean Corpuscular Volume 95.3 fL (83.0-100.0); Mean Platelet Volume 8.9 fL (9.4-12.4); Monocytes # 0.9 K/mcL (0.0-1.3); Neutrophils # 7.6 K/mcL (1.6-8.9); Platelet Count 286 K/mcL (140-400); Red Blood Count 3.82 M/mcL (3.82-4.97); Red Cell Distribution Width 14.6 % (11.5-14.5); Segmented Neutrophils % 75.3 %; White Blood Count 10.1 K/mcL (4.3-11.1)
[2021-02-13 05:11] LABS: BUN/Creatinine Ratio 36 (6-26); Blood Urea Nitrogen 33 mg/dL (8-23); Calcium 9.7 mg/dL (8.6-10.3); Carbon Dioxide 33 mEq/L (23-29); Chloride 97 mEq/L (98-107); Glucose 91 mg/dL (70-105); Osmolality,Calculated 297 (280-300); Potassium 3.9 mEq/L (3.5-5.1); Sodium 140 mEq/L (136-145); eGFR For African Americans > 60 (> 60); eGFR For Non-African Americans > 60 (> 60)
[2021-02-13] MEDS: Doxycycline 100 MG CAPSULE PO SCH ×2 (09:28→19:15)
[2021-02-13] MEDS: levoFLOXacin 500 MG TABLET PO SCH (09:28)
[2021-02-13] MEDS: Gabapentin 300 MG CAPSULE PO SCH ×2 (09:28→19:15)
[2021-02-13] MEDS: Famotidine 20 MG TABLET PO SCH ×2 (09:28→19:15)
[2021-02-13] MEDS: Furosemide 40 MG/4 ML VIAL IVP SCH ×2 (09:28→17:23)
[2021-02-13] MEDS: Loratadine 10 MG TABLET PO SCH (09:28)
[2021-02-13] MEDS: predniSONE 20 MG TABLET PO SCH (09:28)
[2021-02-13] MEDS: Azithromycin 250 MG TABLET PO SCH (15:35)
[2021-02-13] MEDS ORDERED: tiZANidine 4 MG TABLET PO ONE (19:44)
[2021-02-14] MEDS: Ipratropium/Albuterol Neb 3 ML IH SCH ×6 (04:35→23:57)
[2021-02-14] MEDS: *HR* Heparin 5,000 UNIT/ML VIAL SQ SCH ×3 (04:53→20:29)
[2021-02-14] MEDS: tiZANidine 4 MG TABLET PO PRN ×3 (05:09→20:26)
[2021-02-14 05:39] LABS: BUN/Creatinine Ratio 43 (6-26); Blood Urea Nitrogen 36 mg/dL (8-23); Carbon Dioxide 32 mEq/L (23-29); Chloride 96 mEq/L (98-107); Glucose 89 mg/dL (70-105); Osmolality,Calculated 294 (280-300); Potassium 3.7 mEq/L (3.5-5.1); Sodium 138 mEq/L (136-145); eGFR For African Americans > 60 (> 60); eGFR For Non-African Americans > 60 (> 60)
[2021-02-14] MEDS: Doxycycline 100 MG CAPSULE PO SCH ×2 (08:21→20:26)
[2021-02-14] MEDS: Furosemide 40 MG/4 ML VIAL IVP SCH ×2 (08:22→17:07)
[2021-02-14] MEDS: Azithromycin 250 MG TABLET PO SCH (08:22)
[2021-02-14] MEDS: Gabapentin 300 MG CAPSULE PO SCH ×2 (08:22→20:26)
[2021-02-14] MEDS: predniSONE 20 MG TABLET PO SCH (08:22)
[2021-02-14] MEDS: Loratadine 10 MG TABLET PO SCH (08:22)
[2021-02-15] MEDS: Ipratropium/Albuterol Neb 3 ML IH SCH ×6 (04:27→23:58)
[2021-02-15] MEDS: tiZANidine 4 MG TABLET PO PRN ×4 (04:40→23:32)
[2021-02-15 05:19] LABS: BUN/Creatinine Ratio 44 (6-26); Blood Urea Nitrogen 40 mg/dL (8-23); Calcium 9.9 mg/dL (8.6-10.3); Carbon Dioxide 34 mEq/L (23-29); Chloride 96 mEq/L (98-107); Glucose 97 mg/dL (70-105); Osmolality,Calculated 296 (280-300); Potassium 3.8 mEq/L (3.5-5.1); Sodium 138 mEq/L (136-145); eGFR For African Americans > 60 (> 60); eGFR For Non-African Americans > 60 (> 60)
[2021-02-15] MEDS: *HR* Heparin 5,000 UNIT/ML VIAL SQ SCH ×3 (06:14→21:12)
[2021-02-15] MEDS: Furosemide 40 MG/4 ML VIAL IVP SCH (08:21)
[2021-02-15] MEDS: Furosemide 40 MG TABLET PO SCH ×2 (09:14→16:53)
[2021-02-15] MEDS: Azithromycin 250 MG TABLET PO SCH (09:14)
[2021-02-15] MEDS: Doxycycline 100 MG CAPSULE PO SCH ×2 (09:14→21:12)
[2021-02-15] MEDS: predniSONE 20 MG TABLET PO SCH (09:14)
[2021-02-15] MEDS: Gabapentin 300 MG CAPSULE PO SCH ×2 (09:15→21:12)
[2021-02-15] MEDS: Loratadine 10 MG TABLET PO SCH (09:15)
[2021-02-16] MEDS: Ipratropium/Albuterol Neb 3 ML IH SCH ×6 (03:40→23:33)
[2021-02-16] MEDS: *HR* Heparin 5,000 UNIT/ML VIAL SQ SCH ×3 (05:18→20:53)
[2021-02-16] MEDS: tiZANidine 4 MG TABLET PO PRN ×3 (05:31→18:31)
[2021-02-16] MEDS: predniSONE 20 MG TABLET PO SCH (07:29)
[2021-02-16] MEDS: Loratadine 10 MG TABLET PO SCH (07:29)
[2021-02-16] MEDS: Gabapentin 300 MG CAPSULE PO SCH ×2 (07:29→20:54)
[2021-02-16] MEDS: Furosemide 40 MG TABLET PO SCH ×2 (07:30→16:30)
[2021-02-16] MEDS: Doxycycline 100 MG CAPSULE PO SCH (07:30)
[2021-02-16] MEDS: Budesonide/Formoterol 160/4.5 1 PUFF INH IH SCH (20:20)
[2021-02-17] MEDS: tiZANidine 4 MG TABLET PO PRN ×4 (00:53→20:55)
[2021-02-17] MEDS: Ipratropium/Albuterol Neb 3 ML IH SCH ×6 (03:53→23:30)
[2021-02-17] MEDS: *HR* Heparin 5,000 UNIT/ML VIAL SQ SCH ×3 (05:16→20:57)
[2021-02-17] MEDS: Budesonide/Formoterol 160/4.5 1 PUFF INH IH SCH ×2 (07:09→19:50)
[2021-02-17] MEDS: Loratadine 10 MG TABLET PO SCH (07:51)
[2021-02-17] MEDS: Furosemide 40 MG TABLET PO SCH ×2 (07:51→16:25)
[2021-02-17] MEDS: predniSONE 20 MG TABLET PO SCH (07:51)
[2021-02-17] MEDS: Gabapentin 300 MG CAPSULE PO SCH ×2 (07:51→19:43)
[2021-02-18] MEDS ORDERED: Acetaminophen 325 MG TABLET PO PRN (00:57)
[2021-02-18] MEDS: Ipratropium/Albuterol Neb 3 ML IH SCH ×6 (04:21→23:10)
[2021-02-18] MEDS: tiZANidine 4 MG TABLET PO PRN ×3 (06:51→21:49)
[2021-02-18] MEDS: *HR* Heparin 5,000 UNIT/ML VIAL SQ SCH ×3 (06:52→20:15)
[2021-02-18] MEDS: Loratadine 10 MG TABLET PO SCH (07:21)
[2021-02-18] MEDS: Furosemide 40 MG TABLET PO SCH ×2 (07:22→17:19)
[2021-02-18] MEDS: Gabapentin 300 MG CAPSULE PO SCH ×2 (07:22→20:14)
[2021-02-18] MEDS: Budesonide/Formoterol 160/4.5 1 PUFF INH IH SCH ×2 (07:51→20:08)
[2021-02-18] MEDS: predniSONE 20 MG TABLET PO SCH (11:29)
[2021-02-19] MEDS: Ipratropium/Albuterol Neb 3 ML IH SCH ×3 (03:26→11:09)
[2021-02-19] MEDS: *HR* Heparin 5,000 UNIT/ML VIAL SQ SCH (05:09)
[2021-02-19] MEDS: tiZANidine 4 MG TABLET PO PRN (05:09)
[2021-02-19] MEDS: Budesonide/Formoterol 160/4.5 1 PUFF INH IH SCH (07:19)
[2021-02-19] MEDS: Furosemide 40 MG TABLET PO SCH (07:43)
[2021-02-19] MEDS: Loratadine 10 MG TABLET PO SCH (07:43)
[2021-02-19] MEDS: Gabapentin 300 MG CAPSULE PO SCH (07:43)
[2021-02-19] MEDS: predniSONE 20 MG TABLET PO SCH (07:43)
[2021-02-19] MEDS ORDERED: diazePAM 2 MG TABLET PO ONE (08:43)
[2021-02-19 10:59] VITALS: BP 105/65; PULSE 90; TEMP 98.2; O2SAT 93
== END 2021-02-19 15:03 | DRG 720 ==
LOC: EMEROOARM 20:21 → 3BNU 20:21 → SUATTDRO 02-10 01:42 → 3BNU 02-10 02:57 → SUATTDRO 02-11 14:39
PROVIDERS: ADMIT Internal Medicine; ATTEND Internal Medicine

== ENCOUNTER 2021-02-20 04:14 | Observation (INO) ==
[2021-02-20] MEDS ORDERED: Isovue-370 500 ML BOTTLE IVP ONE (04:35)
[2021-02-20 05:06] LABS: Basophils # 0.1 K/mcL (0.0-0.2); Basophils % 0.6 %; Eosinophils # 0.1 K/mcL (0.0-0.6); Eosinophils % 1.1 %; Hematocrit 36.7 % (35.3-44.9); Hemoglobin 11.8 g/dL (11.5-15.4); Lymphocytes # 1.3 K/mcL (0.6-4.6); Lymphocytes % 12.2 %; Mean Corpuscular HGB Conc 32.2 g/dL (31.6-35.5); Mean Corpuscular Hemoglobin 30.6 pg (28.0-33.3); Mean Corpuscular Volume 95.1 fL (83.0-100.0); Mean Platelet Volume 9.6 fL (9.4-12.4); Monocytes # 1.1 K/mcL (0.0-1.3); Monocytes % 10.9 %; Neutrophils # 7.6 K/mcL (1.6-8.9); Platelet Count 278 K/mcL (140-400); Red Blood Count 3.86 M/mcL (3.82-4.97); Red Cell Distribution Width 14.6 % (11.5-14.5); Segmented Neutrophils % 73.2 %; White Blood Count 10.4 K/mcL (4.3-11.1)
[2021-02-20 05:13] LABS: Prothrombin Time 12.1 Seconds (9.4-12.1)
[2021-02-20 05:16] LABS: Activated Partial Thrombo Time 25.3 Seconds (26.0-36.0)
[2021-02-20 05:31] LABS: BUN/Creatinine Ratio 36 (6-26); Blood Urea Nitrogen 32 mg/dL (8-23); Calcium 9.9 mg/dL (8.6-10.3); Carbon Dioxide 31 mEq/L (23-29); Chloride 99 mEq/L (98-107); Glucose 93 mg/dL (70-105); Osmolality,Calculated 295 (280-300); Potassium 4.1 mEq/L (3.5-5.1); Sodium 139 mEq/L (136-145); eGFR For African Americans > 60 (> 60); eGFR For Non-African Americans > 60 (> 60)
[2021-02-20 05:39] LABS: Troponin I < 0.03 ng/mL (< 0.04)
[2021-02-20] MEDS ORDERED: Azithromycin 500 MG in 0.9 % Sodium Chloride 250 ML IVPB ONE (08:06)
[2021-02-20] MEDS ORDERED: Ipratropium/Albuterol Neb 3 ML IH ONE (08:06)
[2021-02-20] MEDS ORDERED: cefTRIAXone 1,000 MG in 0.9 % Sodium Chloride Mini Bag 100 ML IVPB ONE (08:06)
[2021-02-20 09:38] LABS: Adenovirus Not Detected (Not Detect); Bordetella Pertussis Not Detected (Not Detect); Chlamydophila pneumoniae Not Detected (Not Detect); Coronavirus 229E Not Detected (Not Detect); Coronavirus HKU1 Not Detected (Not Detect); Coronavirus NL63 Not Detected (Not Detect); Coronavirus OC43 Not Detected (Not Detect); Human Metapneumovirus Not Detected (Not Detect); Human Rhinovirus/Enterovirus Not Detected (Not Detect); Influenza A Subtype 2009 H1 Not Detected (Not Detect); Influenza B Not Detected (Not Detect); Mycoplasma pneumoniae Not Detected (Not Detect); Parainfluenza Virus 1 Not Detected (Not Detect); Parainfluenza Virus 2 Not Detected (Not Detect); Parainfluenza Virus 3 Not Detected (Not Detect); Parainfluenza Virus 4 Not Detected (Not Detect); Respiratory Syncytial Virus Not Detected (Not Detect); SARS-CoV-2 Not Detected (Not Detect)
[2021-02-20] MEDS ORDERED: Naloxone 0.4 MG/ML INJ IVP PRN (09:59)
[2021-02-20] MEDS ORDERED: Ondansetron 4 MG/2 ML VIAL IVP PRN (09:59)
[2021-02-20] MEDS ORDERED: Aspirin 325 MG TABLET PO STA (10:20)
[2021-02-20] MEDS ORDERED: Acetaminophen 325 MG TABLET PO PRN (10:34)
[2021-02-20] MEDS ORDERED: Regadenoson 0.4 MG/5 ML SYRINGE IVP ONE (11:24)
[2021-02-20] MEDS ORDERED: NON-FORMULARY MEDICATION 1 EACH EACH (Acetaminophen [Tylenol Arthritis] 650 MG Tablet.Er) PO SCH (15:00)
[2021-02-20] MEDS: Budesonide/Formoterol 160/4.5 1 PUFF INH IH SCH (19:54)
[2021-02-20] MEDS: Gabapentin 300 MG CAPSULE PO SCH (22:12)
[2021-02-20] MEDS: Furosemide 40 MG TABLET PO SCH (22:12)
[2021-02-20] MEDS: Famotidine 20 MG TABLET PO SCH (22:13)
[2021-02-20] MEDS: *HR* Heparin 5,000 UNIT/ML VIAL SQ SCH (22:13)
[2021-02-21 02:29] LABS: Basophils % 0.5 %; Eosinophils # 0.1 K/mcL (0.0-0.6); Eosinophils % 1.3 %; Hematocrit 33.4 % (35.3-44.9); Immature Granulocytes % 1.5 % (0-4); Lymphocytes # 1.5 K/mcL (0.6-4.6); Lymphocytes % 17.3 %; Mean Corpuscular HGB Conc 32.9 g/dL (31.6-35.5); Mean Corpuscular Volume 94.1 fL (83.0-100.0); Mean Platelet Volume 9.7 fL (9.4-12.4); Monocytes # 0.9 K/mcL (0.0-1.3); Monocytes % 10.4 %; Platelet Count 276 K/mcL (140-400); Red Blood Count 3.55 M/mcL (3.82-4.97); Red Cell Distribution Width 14.7 % (11.5-14.5); White Blood Count 8.7 K/mcL (4.3-11.1)
[2021-02-21 02:47] LABS: BUN/Creatinine Ratio 36 (6-26); Blood Urea Nitrogen 24 mg/dL (8-23); Calcium 9.2 mg/dL (8.6-10.3); Carbon Dioxide 27 mEq/L (23-29); Chloride 101 mEq/L (98-107); Glucose 81 mg/dL (70-105); Magnesium 2.1 mg/dL (1.6-2.6); Osmolality,Calculated 289 (280-300); Potassium 3.2 mEq/L (3.5-5.1); Sodium 138 mEq/L (136-145); eGFR For African Americans > 60 (> 60); eGFR For Non-African Americans > 60 (> 60)
[2021-02-21] MEDS: *HR* Heparin 5,000 UNIT/ML VIAL SQ SCH (06:56)
[2021-02-21 07:22] VITALS: BP 105/68; PULSE 89; TEMP 97.7
[2021-02-21] MEDS: Gabapentin 300 MG CAPSULE PO SCH (08:31)
[2021-02-21] MEDS: Furosemide 40 MG TABLET PO SCH (08:31)
[2021-02-21] MEDS: Famotidine 20 MG TABLET PO SCH (08:31)
[2021-02-21] MEDS ORDERED: lisinopriL 10 MG TABLET PO SCH (09:00)
[2021-02-21] MEDS ORDERED: Loratadine 10 MG TABLET PO SCH (09:00)
[2021-02-21] MEDS: Budesonide/Formoterol 160/4.5 1 PUFF INH IH SCH (10:43)
[2021-02-21 10:44] VITALS: O2SAT 93
== END 2021-02-21 11:05 | disposition home health service (06) ==
LOC: EMEROOARM 04:14 → 3NENU 04:14
PROVIDERS: ADMIT Family Medicine; ATTEND Family Medicine